=== PATIENT | female | born 1950 | race Caucasian/White ===

== ENCOUNTER 2017-03-17 00:44 | Observation (INO) | payer MEDICARE, OTHER ==
[2017-03-17] VITALS (7 sets, daily range): BP systolic 109–124; BP diastolic 57–77; PULSE 54–82; RESP 16–20; TEMP 97.8–98.6; O2SAT 96–98
[2017-03-17] MEDS ORDERED: LEVO.075 PO (01:00)
[2017-03-17] MEDS ORDERED: CELE20TA PO (01:00)
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
[2017-03-17 03:25] LABS: AUTOMATED NEUTROPHIL # 1.7 TH/MM3 (1.8-7.7); BASOPHIL # 0.1 TH/MM3 (0-0.2); BASOPHIL % 1.5 % (0.0-2.0); EOSINOPHIL # 0.5 TH/MM3 (0-0.4); EOSINOPHIL % 8.9 % (0.0-4.0); HEMATOCRIT 39.8 % (35.0-46.0); HEMO FLAGS DIFF FINAL; LYMPH % 46.3 % (9.0-44.0); LYMPHOCYTE # 2.4 TH/MM3 (1.0-4.8); MEAN CELL VOLUME 92.6 FL (80.0-100.0); MEAN CORPUSCULAR HEMOGLOBIN 29.8 PG (27.0-34.0); MEAN CORPUSCULAR HGB CONC 32.1 % (32.0-36.0); MONO % 11.6 % (0.0-8.0); NEUT % 31.7 % (16.0-70.0); PLATELET COUNT 245 TH/MM3 (150-450); RED CELL DISTRIBUTION WIDTH 13.4 % (11.6-17.2); WHITE BLOOD COUNT 5.3 TH/MM3 (4.0-11.0)
[2017-03-17] MEDS ORDERED: ASPIRIN 81 MG CHEW TAB CHEW ONE (03:30)
[2017-03-17 03:41] LABS: APTT (PATIENT) 26.6 SEC (24.3-30.1); INTERNATIONAL NORMALIZED RATIO 0.9 RATIO; PROTHROMBIN TIME - PATIENT 10.3 SEC (9.8-11.6)
[2017-03-17 04:20] LABS: ALKALINE PHOSPHATASE 62 U/L (45-117); ALT (GPT) 37 U/L (10-53); ANION GAP 6 MEQ/L (5-15); AST (GOT) 33 U/L (15-37); BLOOD UREA NITROGEN 19 MG/DL (7-18); CHLORIDE 101 MEQ/L (98-107); GLOMERULAR FILTRATION RATE 74 ML/MIN (>89); MAGNESIUM 2.3 MG/DL (1.5-2.5); POTASSIUM 3.8 MEQ/L (3.5-5.1); SODIUM (NA) 139 MEQ/L (136-145); TOTAL BILIRUBIN ADULT 0.2 MG/DL (0.2-1.0)
[2017-03-17 04:23] LABS: CREATINE KINASE 96 U/L (26-192)
[2017-03-17] MEDS ORDERED: SODIUM CHLORIDE 0.9% FLUSH 10 ML FLUSH IV FLUSH PRN (08:00)
--- NOTE | 2017-03-17 08:26 | RADRPT ---
EXAM DATE/TIME: 03/17/2017 02:53 [facility] COMPARISON: No previous studies available for comparison. INDICATIONS : Tingling in left arm and leg. RADIATION DOSE: 34.84 CTDIvol (mGy) MEDICAL HISTORY : None SURGICAL HISTORY : None. ENCOUNTER: Initial ACUITY: 1 week PAIN SCALE: 0/10 LOCATION: chest TECHNIQUE: Multiple contiguous axial images were obtained of the head. Using automated exposure control and adj ustment of the mA and/or kV according to patient size, radiation dose was kept as low as reasonably a chievable to obtain optimal diagnostic quality images. FINDINGS: CEREBRUM: The ventricles are normal for age. No evidence of midline shift, mass lesion, hemorrhage or acute in farction. No extra-axial fluid collections are seen. POSTERIOR FOSSA: The cerebellum and brainstem are intact. The 4th ventricle is midline. The cerebellopontine angle i s unremarkable. EXTRACRANIAL: The visualized portion of the orbits is intact. Mild mucosal disease in the right sphenoid sinus. SKULL: The calvaria is intact. No evidence of skull fracture. CONCLUSION: No acute intracranial findings. Boaz Lewis MD on March 17, 2017 at 2:57 Board Certified Radiologist. This report was verified electronically.
--- NOTE | 2017-03-17 08:26 | RADRPT ---
EXAM DATE/TIME: 03/17/2017 02:42 [facility] COMPARISON: No previous studies available for comparison. INDICATIONS : Cough. MEDICAL HISTORY : None. SURGICAL HISTORY : None. ENCOUNTER: Initial ACUITY: 1 day PAIN SCORE: 0/10 LOCATION: Bilateral chest FINDINGS: A single view of the chest demonstrates the lungs to be symmetrically aerated without evidence of mas s, infiltrate or effusion. The cardiomediastinal contours are unremarkable. Osseous structures are intact. CONCLUSION: No acute disease. Boaz Lewis MD on March 17, 2017 at 2:50 Board Certified Radiologist. This report was verified electronically.
[2017-03-17] MEDS ORDERED: SODIUM CHLORIDE 0.9% FLUSH 10 ML FLUSH IV FLUSH SCH (09:00)
[2017-03-17] MEDS ORDERED: CITALOPRAM HYDROBROMIDE 20 MG TAB PO SCH (09:45)
--- NOTE | 2017-03-17 09:52 | HHI.HP ---
HPI Primary Care Physician No Primary Care Physician Chief Complaint Chest pain History of Present Illness This is a 66-year-old female that presents to ED complaining of left-sided pinching chest pain has been intermittent for 3 weeks. She thought maybe had some and with a sinus infection 3 weeks ago. She states that she is here as a snowbird from [place] and her doctor from [place] using is her complaint about prescriptions to take as needed. She took antibiotics for which he thought was a sinus infection which seemed to help with her chest discomfort. Then 4 days ago the chest discomfort reoccurred so she took another antibiotic which did also seem to help. She states over last 4 days the discomfort has been intermittent lasting about an hour. No associated shortness breath, nausea, or diaphoresis. States the discomfort is not related to exertion. Has had these symptoms before but never had been evaluated but attributed to being under stress. She states her July last year. She'll be going back to [place] in a few weeks. Denies history of CAD, hypertension, or diabetes. Has hyperlipidemia but states her HDL is high enough that the doctor is not concerned and she has not been prescribed medication for that. Review of Systems General: Patient denies fevers, chills recent, and recent travel HEENT: Patient denies headache, sore throat, difficulty swallowing. Cardiovascular: Has the chest discomfort as mentioned above. Denies sensation of heart beating rapidly or irregularly. No syncope. Denies diaphoresis. Respiratory: Denies shortness of breath or inspirational chest discomfort. Denies coughing wheezing or hemoptysis. GI: Patient denies nausea, vomiting, diarrhea, abdominal pain, bloody stools. Musculoskeletal: Patient denies joint pain or edema. Denies calf pain or edema. Neurovascular: Patient denies numbness, tingling, weakness in extremities. Denies headache. Endocrine: Denies polyuria and polydipsia. Hematologic: Denies easy bruising. Skin: Denies rash or itching. Past Family Social History Allergies: Coded Allergies: No Known Allergies (Unverified , 03/17/17) Past Medical History Hypothyroidism. Depression. Hyperlipidemia however her physician has not started medication. Denies hypertension, diabetes, and known CAD. Past Surgical History Noncontributory. Reported Medications Reported Meds & Active Scripts Active Reported Celexa (Citalopram Hydrobromide) 20 Mg Tab 20 Mg PO DAILY Synthroid (Levothyroxine Sodium) 75 Mcg Tab 75 Mcg PO DAILY Active Ordered Medications Current Medications Medications (Trade) Dose Ordered Sig/Ayaka Route Start Time Stop Time Status Last Admin (NS Flush) 2 ml UNSCH PRN IV FLUSH 03/17/17 08:00 (NS Flush) 2 ml BID IV FLUSH 03/17/17 09:00 (CeleXA) 20 mg DAILY PO 03/17/17 09:45 UNV (Synthroid) 75 mcg DAILY PO 03/17/17 09:45 UNV Family History Denies family history of CAD. Social History Patient is not a smoker. Denies alcohol or illicit drugs. Physical Exam Vital Signs Vital Signs Date Time Temp Pulse Resp B/P Pulse Ox O2 Delivery O2 Flow Rate FiO2 03/17/17 08:58 97.8 61 20 119/59 98 03/17/17 08:34 63 18 98 Room Air 03/17/17 07:15 63 18 109/57 98 Room Air 03/17/17 00:50 97.9 77 16 122/59 96 Room Air Physical Exam GENERAL: This is a well-nourished, well-developed patient, in no apparent distress. Patient speaks in clear complete sentences. Patient is pleasant. HEENT: Head is atraumatic and normocephalic. Neck is supple without lymphadenopathy and trachea is midline. No JVD or carotid bruits. CARDIOVASCULAR: Regular rate and rhythm without murmurs, gallops, or rubs. RESPIRATORY: Clear to auscultation. Breath sounds equal bilaterally. No wheezes , rales, or rhonchi. Chest wall is nontender. No use of accessory muscles. GASTROINTESTINAL: Abdomen is nontender, nondistended. Abdomen soft. No obvious pulsatile mass or bruit. No CVA tenderness. Strong femoral pulses bilaterally. Normal bowel sounds in all quadrants. MUSCULOSKELETAL: Patient is moving upper and lower extremities freely. No calf tenderness or edema, no Homans sign. Strong pulses in upper and lower extremities. NEUROLOGICAL: Patient is alert and oriented. Cranial nerves 2-12 are grossly intact. No focal deficits and speech is clear. SKIN: No rash and turgor is normal. Laboratory Laboratory Tests Test 03/17/17 02:45 White Blood Count 5.3 Red Blood Count 4.30 Hemoglobin 12.8 Hematocrit 39.8 Mean Corpuscular Volume 92.6 Mean Corpuscular Hemoglobin 29.8 Mean Corpuscular Hemoglobin 32.1 Concent Red Cell Distribution Width 13.4 Platelet Count 245 Mean Platelet Volume 8.2 Neutrophils (%) (Auto) 31.7 Lymphocytes (%) (Auto) 46.3 Monocytes (%) (Auto) 11.6 Eosinophils (%) (Auto) 8.9 Basophils (%) (Auto) 1.5 Neutrophils # (Auto) 1.7 Lymphocytes # (Auto) 2.4 Monocytes # (Auto) 0.6 Eosinophils # (Auto) 0.5 Basophils # (Auto) 0.1 CBC Comment DIFF FINAL Differential Comment Prothrombin Time 10.3 Prothromb Time International 0.9 Ratio Activated Partial 26.6 Thromboplast Time Sodium Level 139 Potassium Level 3.8 Chloride Level 101 Carbon Dioxide Level 32.0 Anion Gap 6 Blood Urea Nitrogen 19 Creatinine 0.78 Estimat Glomerular Filtration 74 Rate Random Glucose 80 Lactic Acid Level 0.5 Calcium Level 8.9 Magnesium Level 2.3 Total Bilirubin 0.2 Aspartate Amino Transf 33 (AST/SGOT) Alanine Aminotransferase 37 (ALT/SGPT) Alkaline Phosphatase 62 Total Creatine Kinase 96 Troponin I LESS THAN 0.02 B-Type Natriuretic Peptide 12 Total Protein 7.3 Albumin 3.4 Lipase 355 Date/Time Procedure Status Source Growth 03/17/17 02:50 Aerobic Blood Culture Received Blood Peripheral Pending 03/17/17 02:50 Anaerobic Blood Culture Received Blood Peripheral Pending Result Diagram: 03/17/1724403/17/17244 Imaging Last [address] 03/17/17144 Signed Impressions: Service Date/Time: Friday, March 17, 2017 02:53 - CONCLUSION: No acute intracranial findings. Boaz Lewis MD Chest X-Ray 03/17/17144 Signed Impressions: Service Date/Time: Friday, March 17, 2017 02:42 - CONCLUSION: No acute disease. Boaz Lewis MD Course EKGs have sinus rhythm without significant ST segment depressions or elevations. Assessment and Plan Assessment and Plan * Atypical chest pain: Patient has had serial cardiac enzymes and EKGs. She has been seen by Dr. Terence Hernandez of cardiology in the chest pain center. She will undergo a Lexiscan. She'll be discharged home if the Lexiscan is nonischemic. She should follow back with her primary care physician. Patient is stable at this time. She is agreeable to this plan. Ronaldo Acosta March 17, 2017 09:52
[2017-03-17] MEDS ORDERED: LEVOTHYROXINE SODIUM 75 MCG TAB PO SCH (10:15)
[2017-03-17 10:36] LABS: CREATINE KINASE 90 U/L (26-192)
[2017-03-17 12:20] LABS: CREATINE KINASE 87 U/L (26-192)
--- NOTE | 2017-03-17 13:46 | EKG ---
Date Performed: 03/17/2017 Time Performed: 08:29:10 PTAGE: 66 years EKG: SINUS BRADYCARDIA BORDERLINE ECG PREVIOUS TRACING : 03/17/2017 03.02 Since previous tracing, no significant change noted DOCTOR: Terence Hernandez Interpretating Date/Time 03/17/2017 13:45:01
--- NOTE | 2017-03-17 13:47 | EKG ---
Date Performed: 03/17/2017 Time Performed: 03:02:13 PTAGE: 66 years EKG: SINUS BRADYCARDIA BORDERLINE ECG NO PREVIOUS TRACING DOCTOR: Terence Hernandez Interpretating Date/Time 03/17/2017 13:46:35
[2017-03-17] MEDS ORDERED: REGADENOSON INJ 0.4 MG/5 ML SYR ONE (13:59)
[2017-03-17] MEDS ORDERED: AMINOPHYLLINE INJ 250 MG/10 ML VIAL ONE (14:28)
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
--- NOTE | 2017-03-17 16:54 | HHI.DCPOC ---
Discharge Care Plan Diagnosis: (1) Chest pain, atypical Goals to Promote Your Health * To prevent worsening of your condition and complications * To maintain your health at the optimal level Directions to Meet Your Goals Take your medications as prescribed Follow your dietary instruction Follow activity as directed Keep your appointments as scheduled Take your immunizations and boosters as scheduled If your symptoms worsen call your PCP, if no PCP go to Urgent Care Center or Emergency Room Smoking is Dangerous to Your Health. Avoid second hand smoke Call the 24-hour hour crisis hotline for domestic abuse at Ronaldo Acosta March 17, 2017 16:53
[2017-03-18] MEDS ORDERED: ASPIRIN 325 MG TAB PO SCH (09:00)
--- NOTE | 2017-03-18 13:39 | TR ---
Date Performed: 03/17/2017 Time Performed: 13:50:31 DOCTOR: Derek Carbajal DRUG LIST: CLINICAL HISTORY: REASON FOR TEST: Angina REASON FOR ENDING: OBSERVATION: CONCLUSION: Lexiscan stress test was performed under standard four minute protocol. Radionuclid e was injected one minute prior to ending the test. No electrocardiographic abormalities were present to suggest ischemia. Nuclear imaging and interpretation are pending. COMMENTS:
== END 2017-03-17 18:04 | disposition home or self-care (01) ==
LOC: NEPE 00:44 → NEDA 04:43 → NEPHCDU 08:56
PROVIDERS: ADMIT Internal Medicine Interventional Cardiology; ATTEND Internal Medicine Interventional Cardiology
DX: R07.89 Other chest pain (principal); E03.9 Hypothyroidism, unspecified; F32.9 Major depressive disorder, single episode, unspecified; R00.1 Bradycardia, unspecified; I20.9 Angina pectoris, unspecified; R20.9 Unspecified disturbances of skin sensation
CPT/HCPCS: 70450; 71010; 78452; 80053; 82550; 83605; 83690; 83735; 83880; 84484; 85025; 85610; 85730; 87040; 93005; 93017; 99285; A9502; G0378; J0280; J2785